=== PATIENT | female | born 1980 | race Hispanic/Latino ===

== ENCOUNTER 2017-05-26 12:57 | Emergency (ER) | payer OTHER, SELFPAY ==
[2017-05-26] MEDS ORDERED: Ondansetron ODT 8 MG TAB ONE ×2 (13:23→13:24)
[2017-05-26] MEDS ORDERED: Mag-Al 1200 mg/1200 mg/30 ML UDCUP ONE (13:37)
[2017-05-26] MEDS ORDERED: Lidocaine Viscous Sol 2% 15 ml UD Cup ONE (13:37)
[2017-05-26 13:51] LABS: #Eosinphils 0.1 thou/uL (0.0-0.7); #Lymphocytes 1.7 thou/uL (1.20-3.40); #Monocytes 0.5 thou/uL (0.11-0.59); #Neutrophils 4.3 thou/uL (1.40-6.50); %Basophils 0.5 % (0.0-1.0); %Eosinophils 1.7 % (0.0-10.0); %Lymphocytes 25.8 % (21.0-51.0); %Monocytes 7.9 % (0.0-10.0); Hematocrit 39.1 % (36.0-47.0); Mean Platelet Volume 7.3 fL (7.4-10.4); White Blood Cell (WBC) Count 6.8 thou/uL (4.8-10.8)
[2017-05-26 14:02] LABS: Bilirubin Negative (Negative); Blood, Urine Negative (Negative); Glucose, Urine (Dipstick) Negative (Negative); Ketone, Urine Negative (Negative); Nitrite Negative (Negative); Protein, Urine (Dipstick) Negative (Neg-Trace)
[2017-05-26 14:04] LABS: Hyaline Casts/LPF 4-6 HYALINE CAST LPF (0-3 Hyaline); WBC/HPF 21-50 HPF (0-3)
[2017-05-26 14:15] LABS: ALT (SGPT) 26 U/L (8-55); AST (SGOT) 19 U/L (5-34); Alkaline Phosphatase 139 U/L (40-150); Anion Gap 11 mmol/L (10-20); BUN (Urea Nitrogen) 17 mg/dL (7.0-18.7); Bilirubin, Total 1.3 mg/dL (0.2-1.2); Calc. Creatinine Clearance 0 mL/min (70-130); Calcium 9.2 mg/dL (7.8-10.44); Carbon Dioxide 26 mmol/L (22-29); Chloride 106 mmol/L (98-107); Estimated GFR-MDRD 87; Globulin 3.7 g/dL (2.4-3.5); Protein, Total 7.7 g/dL (6.0-8.3)
[2017-05-26 14:52] LABS: RBC/HPF 0-3 HPF (0-3)
[2017-05-26 14:53] LABS: Bacteria/HPF Rare-Few HPF (None Seen)
[2017-05-26 14:54] LABS: Yeast-All Forms None Seen HPF (None Seen)
== END 2017-05-26 15:34 | disposition home or self-care (01) ==
LOC: ERS 12:57
DX: N39.0 Urinary tract infection, site not specified (principal); R10.13 Epigastric pain
CPT/HCPCS: 36415; 80053; 81003; 81015; 84703; 85025; 99406

== ENCOUNTER 2018-07-04 06:40 | Emergency (ER) | payer BC, SELFPAY ==
[2018-07-04] MEDS ORDERED: Ketorolac Tromethamine 60 MG/2 ML VIAL ONE (07:21)
[2018-07-04] MEDS ORDERED: Dexamethasone 10 MG/ML VIAL ONE (07:21)
[2018-07-04] MEDS ORDERED: Bicillin LA 1.2 MILLION UNITS/2 ML SYRINGE ONE (07:21)
== END 2018-07-04 07:53 | disposition home or self-care (01) ==
LOC: ERS 06:40
DX: J02.0 Streptococcal pharyngitis (principal); F17.210 Nicotine dependence, cigarettes, uncomplicated
CPT/HCPCS: 96372; J0561; J1100; J1885

== ENCOUNTER 2018-07-08 11:14 | Emergency (ER) | payer BC | END 2018-07-08 12:20 | disposition home or self-care (01) | LOC: ERS 11:14 | DX: J02.9 Acute pharyngitis, unspecified (principal); F17.210 Nicotine dependence, cigarettes, uncomplicated | CPT/HCPCS: 99282 ==

== ENCOUNTER 2018-08-29 04:00 | Emergency (ER) | payer BC | END 2018-08-29 06:40 | disposition home or self-care (01) | LOC: ERS 04:00 | DX: J11.1 Influenza due to unidentified influenza virus with other respiratory manifestations (principal); F17.210 Nicotine dependence, cigarettes, uncomplicated | CPT/HCPCS: 87081; 87430; 87804; 99283 ==

== ENCOUNTER 2019-02-05 15:01 | Inpatient (IN) | payer BC, SELFPAY ==
[~2019-02-05 15:01] MED LIST: ISOVUE-370 76%-LOCM 1 ML ONE
[2019-02-05 16:51] LABS: #Lymphocytes 1.5 thou/uL (1.20-3.40); #Monocytes 1.3 thou/uL (0.11-0.59); %Basophils 0.1 % (0.0-1.0); %Eosinophils 0.1 % (0.0-10.0); %Lymphocytes 9.7 % (21.0-51.0); %Monocytes 7.9 % (0.0-10.0); %Neutrophils 82.1 % (42.0-75.0); Hemoglobin 13.2 g/dL (12.0-16.0); Mean Corpuscular HGB CONC 35.7 g/dL (32.0-36.0); Mean Corpuscular Hemoglobin 31.1 pg (27.0-31.0); Mean Platelet Volume 8.5 fL (7.4-10.4); Platelet Count 206 thou/uL (130-400); RBC Distribution Width 11.7 % (11.5-14.5); Red Blood Cell (RBC) Count 4.27 mill/uL (4.20-5.40); White Blood Cell (WBC) Count 15.8 thou/uL (4.8-10.8)
[2019-02-05] MEDS ORDERED: Ondansetron PF 4 MG/2 ML Vial ONE (17:04)
[2019-02-05 17:15] LABS: ALT (SGPT) 61 U/L (8-55); AST (SGOT) 25 U/L (5-34); Albumin 3.8 g/dL (3.5-5.0); Alkaline Phosphatase 168 U/L (40-150); Anion Gap 11 mmol/L (10-20); BUN (Urea Nitrogen) 14 mg/dL (7.0-18.7); Bilirubin, Total 2.6 mg/dL (0.2-1.2); Calc. Creatinine Clearance 0 mL/min (70-130); Calcium 9.1 mg/dL (7.8-10.44); Carbon Dioxide 28 mmol/L (22-29); Chloride 97 mmol/L (98-107); Estimated GFR-MDRD 87; Globulin 3.5 g/dL (2.4-3.5); Glucose 88 mg/dL (70-105); Lipase 14 U/L (8-78); Protein, Total 7.3 g/dL (6.0-8.3); Sodium 134 mmol/L (136-145)
[2019-02-05 17:20] LABS: Potassium 2.4 mmol/L (3.5-5.1)
[2019-02-05 17:30] LABS: Pregnancy Test - Urine (BHCG) Negative (Negative); Pregu Control Background? CLEAR/WHITE (CLR/WHITE); Pregu Control Bar Appear? YES (CONTROL BAR); Specific Gravity 1.037 (1.002-1.036)
[2019-02-05 17:36] LABS: Bilirubin 1+ (Negative); Blood, Urine Trace (Negative); Clarity Turbid (Clear); Glucose, Urine (Dipstick) Normal (Negative); Leukocyte 500 Leu/uL (Negative); Mucous/LPF Rare LPF (<2+); Nitrite Negative (Negative); Protein, Urine (Dipstick) 70 mg/dL (Neg-Trace); Transitional Epithelial 0-3 HPF (None Seen); Urobilinogen 3 mg/dL (Less than 2); WBC/HPF Greater than 50 HPF (0-3)
[2019-02-05] MEDS ORDERED: Potassium Chloride 20 MEQ TAB ONE (17:39)
[2019-02-05 17:44] LABS: Trichomonas/HPF 1+ HPF (None Seen)
[2019-02-05 17:45] LABS: Bacteria/HPF 1+ HPF (None Seen)
--- NOTE | 2019-02-05 17:50 | CT ---
CT abdomen and pelvis with IV contrast HISTORY: Abdomen pain. FINDINGS: Lung bases are clear. Gallbladder and appendix are surgically absent. Small cysts arise fro m the cortex of each kidney. Nonspecific lymph nodes throughout the retroperitoneum. No evidence of bowel obstruction. Urinary bladder is decompressed. Follicles arise from each ovary. IMPRESSION: No abnormalities to explain abdominal pain.
[2019-02-05] MEDS ORDERED: Sulfameth/Trimethoprim DS 800-160mg TAB ONE (18:17)
[2019-02-05] MEDS ORDERED: cefTRIAXone\\ROCEPHIN 2 GM VIAL ONE (18:17)
[2019-02-05] MEDS ORDERED: Sodium Chloride 0.9% 1,000 ML IV SCH (20:22)
[2019-02-05] MEDS: Morphine 2 MG/ML SYRINGE SLOW IVP PRN (22:29)
[2019-02-05] MEDS: D5 1/2 NS w/20 mEq KCL 1,000 ML IV SCH (22:37)
[2019-02-05 22:45] VITALS: BMI 32.2
[2019-02-05] MEDS ORDERED: Calcium Carbonate 500 MG ChewTAB PO PRN (23:15)
--- NOTE | 2019-02-06 03:17 | HP ---
PRIMARY CARE PHYSICIAN: Edward Ayers MD. CHIEF COMPLAINT: Fever, nausea, vomiting, abdominal pain. HISTORY OF PRESENT ILLNESS: This is a 38-year-old female patient who has been in her normal state of health until about 4 to 5 days ago when she developed nausea, vomiting, and diarrhea. She felt like it was just a viral infection that would resolve on its own. Then about 2 days ago, she developed a fever up to 101 with night sweats. Abdominal pain worsens all over, but worse on her left side. She states she continued to have the nausea, last time she threw up was 3 days ago. Her last diarrhea was about 3 days ago. She denies dysuria or frequency, but has noticed some blood in her urine over the past day. She has not had a past history of kidney stones or bladder infections. She does travel to [place] and has been eating at new places, but no other ill contacts. Had no one else in the family became sick either. She has had decreased appetite over the past several days. She has had some relief with presenting to the emergency department and getting some IV fluids, but continues to feel weak, but more complaining of abdominal pain. PAST MEDICAL HISTORY: None. MEDICATIONS: None. PAST SURGICAL HISTORY: Tubal ligation, appendectomy, cholecystectomy. ALLERGIES: TO CHERRIES. SOCIAL HISTORY: Positive smoking about 1 pack per week. Alcohol about 2 or 3 days a week. 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 She has 3 kids. FAMILY HISTORY: Noncontributory. REVIEW OF SYSTEMS: As per the history of present illness. GENERAL: She admits to increased weakness, increased fatigue, and generalized malaise. HEENT: No headache, visual or hearing changes. Denies upper respiratory symptoms. CARDIAC: Denies chest pain, shortness of breath, or palpitations. PULMONARY: Denies cough or hemoptysis. GI: As per the history of present illness. : Denies dysuria or hematuria prior to today. No recent bladder infections. NEUROLOGIC: No seizure or syncope. PHYSICAL EXAMINATION: VITAL SIGNS: In the ER, temperature 98.7, pulse is 74, respirations 12-15, blood pressure 128/67, and pulse ox 100% on room air. GENERAL: She is awake and alert. No acute distress. She does appear uncomfortable in bed. HEENT: Mucosa is dry. Lips are dry. NECK: Supple. No JVD, adenopathy, or bruits. HEART: Regular rate and rhythm. LUNGS: Clear. ABDOMEN: Positive bowel sounds. Soft. Diffuse tenderness throughout, worse on the left side and left upper quadrant. Minimal left CVA tenderness. EXTREMITIES: No clubbing, cyanosis, or edema. 2+ peripheral pulses bilaterally. LABORATORY DATA: White blood cell count 15,800, hemoglobin and hematocrit 13.2 and 37.1, platelets of 206. Sodium 134, potassium 2.4, chloride 97, CO2 of 28, BUN and creatinine 14 and 0.75 with a GFR of 87. Total bilirubin slightly elevated at 2.6, AST normal at 26, ALT 61, alkaline phosphatase elevated at 168, lipase normal at 14, albumin normal at 3.8. Urinalysis; positive protein, positive ketone, positive blood, positive bilirubin, positive leukocyte esterase, positive red blood cells, positive white blood cells, positive epithelial cells. test negative. Trichomonas positive. CT abdomen and pelvis reveals nonspecific lymph nodes in the retroperitoneum. No other abnormalities. Gallbladder and appendix are abnormal. No mention of the liver. ASSESSMENT AND PLAN: This is a 38-year-old female with about 1 week of symptoms of gastroenteritis and 2 to 3 days' symptoms of urinary tract infection, now with apparent pyelonephritis and dehydration. 1. Pyelonephritis. We will continue IV Rocephin. We will push IV fluids as well and once her nausea improves, we will be able to push oral fluids as well. 2. Dehydration. Again, we will start IV fluids. 3. Transaminitis with obstructive indices. We will get an ultrasound of the liver. May need GI evaluation if not improving. 4. Hypokalemia. We will continue to replete and IV fluids. 5. Leukocytosis. We will recheck in the morning. Job ID: [id number]
[2019-02-06] MEDS: Morphine 2 MG/ML SYRINGE SLOW IVP PRN ×3 (04:09→21:15)
[2019-02-06] MEDS: D5 1/2 NS w/20 mEq KCL 1,000 ML IV SCH ×4 (04:59→21:19)
[2019-02-06] MEDS: Sulfameth/Trimethoprim DS 800-160mg TAB PO SCH ×2 (05:00→17:24)
[2019-02-06 05:25] LABS: #Lymphocytes 1.5 thou/uL (1.20-3.40); #Neutrophils 10.1 thou/uL (1.40-6.50); %Basophils 0.1 % (0.0-1.0); %Eosinophils 0.3 % (0.0-10.0); %Lymphocytes 12.1 % (21.0-51.0); %Monocytes 8.1 % (0.0-10.0); %Neutrophils 79.4 % (42.0-75.0); Hemoglobin 11.4 g/dL (12.0-16.0); Mean Corpuscular Hemoglobin 30.6 pg (27.0-31.0); Mean Corpuscular Volume 87.5 fL (78.0-98.0); Platelet Count 192 thou/uL (130-400); RBC Distribution Width 11.6 % (11.5-14.5); Red Blood Cell (RBC) Count 3.71 mill/uL (4.20-5.40); White Blood Cell (WBC) Count 12.7 thou/uL (4.8-10.8)
[2019-02-06 05:51] LABS: ALT (SGPT) 47 U/L (8-55); AST (SGOT) 23 U/L (5-34); Albumin 3.4 g/dL (3.5-5.0); Alkaline Phosphatase 160 U/L (40-150); Anion Gap 11 mmol/L (10-20); BUN (Urea Nitrogen) 8 mg/dL (7.0-18.7); Bilirubin, Total 1.5 mg/dL (0.2-1.2); Calc. Creatinine Clearance 128 mL/min (70-130); Calcium 8.9 mg/dL (7.8-10.44); Carbon Dioxide 27 mmol/L (22-29); Chloride 102 mmol/L (98-107); Estimated GFR-MDRD Greater than 90; Glucose 106 mg/dL (70-105); Protein, Total 6.4 g/dL (6.0-8.3); Sodium 137 mmol/L (136-145)
[2019-02-06 05:57] LABS: Potassium 2.9 mmol/L (3.5-5.1)
[2019-02-06] MEDS ORDERED: Sulfameth/Trimethoprim DS 800-160mg TAB PO SCH (06:00)
--- NOTE | 2019-02-06 08:08 | PRG ---
DATE OF SERVICE: 02/06/2019 SUBJECTIVE: The patient is feeling somewhat better, but still with marked abdominal cramps and tenderness. Still with some left flank pain. OBJECTIVE: VITAL SIGNS: Temperature 99.4, pulse 76, respirations 18, pulse ox 97% on room air, and blood pressure 112/75. HEART: Regular rate and rhythm. LUNGS: Clear. ABDOMEN: Soft with bowel sounds present with diffuse tenderness. Appears to be worse in the right upper quadrant, but diffuse. BACK: With mild left CVA tenderness. EXTREMITIES: No edema. LABORATORY DATA: White count 12.7 down from 15.8, H and H are 11 and 32, and platelet is 192. Sodium 137, potassium 2.9, chloride 102, creatinine 0.72, BUN 8, and alkaline phosphatase decreased from 168 to 160. ASSESSMENT: 1. Abdominal pain unremarkable for diverticulitis on CAT scan. This morning, ultrasound is pending. Rule out gallstones. 2. Severe dehydration. 3. Hypokalemia. 4. Hyponatremia. PLAN: 1. Recheck CBC and comprehensive metabolic panel in the a.m. 2. Abdominal ultrasound today. 3. Continue with IV hydration. 4. Add potassium p.o. 5. We will re-evaluate in the a.m. Job ID: [id number]
--- NOTE | 2019-02-06 08:34 | ULT ---
ULTRASOUND ABDOMEN: Date: 02/06/19 HISTORY: Transaminitis. COMPARISON: CT examination prior day. FINDINGS: Real-time Guerrero scale and color evaluation of the abdomen performed. Visualized portions of the aorta, IVC, and pancreas are unremarkable. Hepatic echotexture is normal. Common bile duct measures 9 mm. Portal vein is patent with antegrade flow. No intrahepatic biliary di latation. Liver measures 17.2 cm in length. Right kidney measures 11.5 x 6.5 x 5.9 cm. Left kidney measures 10. 6 x 6.3 x 5.2 cm. No renal mass, hydronephrosis, or abnormal calcifications. Spleen measures 11.3 cm in length. IMPRESSION: 1. [place] effect of the extrahepatic biliary system. No acute inflammatory process within the abd omen or pelvis. 2. The renal hypodensities seen on the CT examination are not well defined on today's ultrasound. POS: OFF
[2019-02-06] MEDS: Potassium Chloride 20 MEQ TAB PO SCH ×2 (09:29→17:24)
[2019-02-06] MEDS: cefTRIAXone\\ROCEPHIN 1 GM in Sodium Chloride 0.9% 100 ML IVPB SCH (17:24)
[2019-02-06] MEDS ORDERED: Acetaminophen 500 MG TAB PO PRN (22:21)
[2019-02-06] MEDS: HYDROcodone/Acetaminophen 10/325 mg Tablet PO PRN (23:38)
[2019-02-07 05:28] LABS: #Eosinphils 0.2 thou/uL (0.0-0.7); #Lymphocytes 1.6 thou/uL (1.20-3.40); #Monocytes 0.8 thou/uL (0.11-0.59); #Neutrophils 6.9 thou/uL (1.40-6.50); %Basophils 0.2 % (0.0-1.0); %Eosinophils 2.1 % (0.0-10.0); %Lymphocytes 16.5 % (21.0-51.0); %Monocytes 8.8 % (0.0-10.0); %Neutrophils 72.5 % (42.0-75.0); Hemoglobin 11.3 g/dL (12.0-16.0); Mean Corpuscular HGB CONC 33.7 g/dL (32.0-36.0); Mean Corpuscular Hemoglobin 29.9 pg (27.0-31.0); Mean Corpuscular Volume 88.6 fL (78.0-98.0); Platelet Count 206 thou/uL (130-400); RBC Distribution Width 11.8 % (11.5-14.5); Red Blood Cell (RBC) Count 3.78 mill/uL (4.20-5.40); White Blood Cell (WBC) Count 9.6 thou/uL (4.8-10.8)
[2019-02-07 05:52] LABS: ALT (SGPT) 54 U/L (8-55); AST (SGOT) 38 U/L (5-34); Albumin 3.2 g/dL (3.5-5.0); Alkaline Phosphatase 156 U/L (40-150); Anion Gap 10 mmol/L (10-20); BUN (Urea Nitrogen) Less than 4 mg/dL (7.0-18.7); Bilirubin, Total 1.8 mg/dL (0.2-1.2); Calc. Creatinine Clearance 133 mL/min (70-130); Calcium 8.5 mg/dL (7.8-10.44); Carbon Dioxide 24 mmol/L (22-29); Chloride 103 mmol/L (98-107); Estimated GFR-MDRD Greater than 90; Glucose 88 mg/dL (70-105); Potassium 3.3 mmol/L (3.5-5.1); Protein, Total 6.2 g/dL (6.0-8.3); Sodium 134 mmol/L (136-145)
[2019-02-07] MEDS: Potassium Chloride 20 MEQ TAB PO SCH ×2 (08:14→17:55)
[2019-02-07] MEDS: Sulfameth/Trimethoprim DS 800-160mg TAB PO SCH ×2 (08:14→17:55)
[2019-02-07] MEDS: HYDROcodone/Acetaminophen 10/325 mg Tablet PO PRN ×3 (08:14→20:41)
[2019-02-07] MEDS: D5 1/2 NS w/20 mEq KCL 1,000 ML IV SCH ×3 (08:16→20:42)
--- NOTE | 2019-02-07 08:21 | PRG ---
DATE OF SERVICE: 02/07/2019 SUBJECTIVE: The patient still with abdominal cramps. She had a temperature last night of 100.2. Temperature this morning 99.6. OBJECTIVE: VITAL SIGNS: Temperature 99.6, pulse 76, respirations 18, and blood pressure 107/69. GENERAL: Mild distress from abdominal pain. HEART: Regular rate and rhythm. LUNGS: Clear. ABDOMEN: Soft. Mild diffuse tenderness. LABORATORY DATA: White count 9.6, H and H of 11 and 33. Sodium 134, potassium 3.3. ASSESSMENT: 1. Abdominal pain, most likely secondary to gastroenteritis. No diarrhea last night. Abdominal ultrasound and CAT scan unremarkable. 2. Severe dehydration, resolving. 3. Hypokalemia. 4. Hyponatremia, improving. PLAN: 1. Recheck CBC and comprehensive in the a.m. 2. Advance diet today. 3. Cultures are pending. 4. If the patient improves, possibly go home today or tomorrow. Job ID: [id number]
[2019-02-07] MEDS: cefTRIAXone\\ROCEPHIN 1 GM in Sodium Chloride 0.9% 100 ML IVPB SCH (17:55)
[2019-02-08] MEDS: HYDROcodone/Acetaminophen 10/325 mg Tablet PO PRN ×2 (02:27→10:43)
[2019-02-08] MEDS: D5 1/2 NS w/20 mEq KCL 1,000 ML IV SCH ×2 (03:00→11:05)
[2019-02-08 04:43] LABS: #Eosinphils 0.3 thou/uL (0.0-0.7); #Lymphocytes 1.5 thou/uL (1.20-3.40); #Neutrophils 7.8 thou/uL (1.40-6.50); %Eosinophils 2.7 % (0.0-10.0); %Lymphocytes 14.2 % (21.0-51.0); %Neutrophils 74.1 % (42.0-75.0); Hemoglobin 10.7 g/dL (12.0-16.0); Mean Corpuscular HGB CONC 33.3 g/dL (32.0-36.0); Mean Corpuscular Hemoglobin 29.4 pg (27.0-31.0); Mean Corpuscular Volume 88.4 fL (78.0-98.0); Mean Platelet Volume 7.7 fL (7.4-10.4); Platelet Count 270 thou/uL (130-400); RBC Distribution Width 11.8 % (11.5-14.5); Red Blood Cell (RBC) Count 3.64 mill/uL (4.20-5.40); White Blood Cell (WBC) Count 10.6 thou/uL (4.8-10.8)
[2019-02-08 05:03] LABS: ALT (SGPT) 55 U/L (8-55); AST (SGOT) 37 U/L (5-34); Alkaline Phosphatase 167 U/L (40-150); Anion Gap 10 mmol/L (10-20); BUN (Urea Nitrogen) Less than 4 mg/dL (7.0-18.7); Bilirubin, Total 1.2 mg/dL (0.2-1.2); Calc. Creatinine Clearance 146 mL/min (70-130); Calcium 8.6 mg/dL (7.8-10.44); Carbon Dioxide 23 mmol/L (22-29); Chloride 105 mmol/L (98-107); Estimated GFR-MDRD Greater than 90; Globulin 3.1 g/dL (2.4-3.5); Glucose 102 mg/dL (70-105); Potassium 3.5 mmol/L (3.5-5.1); Protein, Total 6.1 g/dL (6.0-8.3); Sodium 134 mmol/L (136-145)
[2019-02-08] MEDS: Sulfameth/Trimethoprim DS 800-160mg TAB PO SCH (06:10)
--- NOTE | 2019-02-08 08:19 | DIS ---
DATE OF ADMISSION: 02/05/2019 DATE OF DISCHARGE: 02/08/2019 DISCHARGE DIAGNOSES: 1. Viral gastroenteritis. 2. Mesenteric adenitis. 3. Dehydration. 4. Hypokalemia. 5. Hyponatremia, resolving. DISCHARGE MEDICATIONS: None. Maintain hydration. FOLLOWUP: Followup in [address] Edward Ayers. BRIEF HISTORY: This is a 38-year-old female, who is doing well until approximately 4 days prior, developed nausea, vomiting, diarrhea; but approximately 2 days prior, she developed fever to 101 with sweats. Her abdominal pain become much worse and she presented to the emergency room after having persistent nausea and vomiting. She eats out frequently at various restaurants and however has had no ill contacts recently. HOSPITAL COURSE: The patient was started on IV Rocephin as well as p.o. Bactrim. She was given IV hydration. She did spike a temperature up to 100.2. Over her 3-day hospital stay, her abdominal pain improved. Her diarrhea resolved. She is now tolerating a bland diet. She still does have abdominal soreness. However, her abdominal exam is benign. Her white count was 15.8 on admission, it is now 10.6 with an H and H of 10 and 32, and platelet 270. Sodium 134, potassium 3.5, BUN 4, and creatinine 0.63. UA showed dehydration on admission. Urine culture was negative. The patient plans to follow up in 1 week. Precautions have been given. Abdominal pelvic CT showed nonspecific retroperitoneal lymph nodes. Job ID: [id number]
[2019-02-08] MEDS ORDERED: Ondansetron PF 4 MG/2 ML Vial SLOW IVP PRN (10:12)
[2019-02-08] MEDS: Potassium Chloride 20 MEQ TAB PO SCH (10:43)
[2019-02-08 10:49] VITALS: BP 115/67; TEMP 98.5
== END 2019-02-08 14:32 | disposition home or self-care (01) | DRG 392 ==
LOC: ERS 15:01 → T4-A 20:07 → OBSVTOIN 20:07
PROVIDERS: ADMIT Family Medicine; ATTEND Family Medicine
DX: A08.4 Viral intestinal infection, unspecified (principal); N12 Tubulo-interstitial nephritis, not specified as acute or chronic; E87.1 Hypo-osmolality and hyponatremia; F17.210 Nicotine dependence, cigarettes, uncomplicated; E86.0 Dehydration; I88.0 Nonspecific mesenteric lymphadenitis; E87.6 Hypokalemia; Z90.49 Acquired absence of other specified parts of digestive tract; Z98.51 Tubal ligation status
CPT/HCPCS: 36415; 74177; 76700; 80053; 81003; 81015; 81025; 83690; 83735; 85025; 87040; 87086; 96361; 96365; 96375; J0696; J2270; J2405; J3490; Q9966

== ENCOUNTER 2019-11-26 09:20 | Emergency (ER) | payer SELFPAY ==
--- NOTE | 2019-11-26 09:38 | CT ---
CT BRAIN NONCONTRAST: DATE: 11/26/2019 HISTORY: 38-year-old female with left upper extremity hypesthesia (numbness). Dr. Ko verbally gave report for this stroke alert protocol CT by telephone with Dr. Stevens at 9:33 A M 11/26/2019 FINDINGS: There is no evidence of acute intra-axial or extra-axial hemorrhage. There is no midline shift or any other mass effect. There is no extra-axial fluid collection. There is no evidence of obstructive hydrocephalus. Calvarium is intact. There is an approximately 6 x 1 cm extra-axial fatty mass along t he interhemispheric fissure. IMPRESSION: 1. No acute intracranial findings. 2. Incidental finding of midline intracranial lipoma.
[2019-11-26 09:49] LABS: #Basophils 0.1 thou/uL (0.0-0.2); #Eosinphils 0.3 thou/uL (0.0-0.7); #Lymphocytes 2.1 thou/uL (1.20-3.40); #Monocytes 0.7 thou/uL (0.11-0.59); #Neutrophils 6.7 thou/uL (1.40-6.50); %Basophils 0.6 % (0.0-1.0); %Eosinophils 2.9 % (0.0-10.0); %Lymphocytes 21.5 % (21.0-51.0); %Monocytes 7.4 % (0.0-10.0); %Neutrophils 67.6 % (42.0-75.0); Hemoglobin 13.7 g/dL (12.0-16.0); Mean Corpuscular HGB CONC 33.4 g/dL (32.0-36.0); Mean Platelet Volume 8.7 fL (7.4-10.4); Platelet Count 251 thou/uL (130-400); RBC Distribution Width 12.5 % (11.5-14.5); Red Blood Cell (RBC) Count 4.56 mill/uL (4.20-5.40); White Blood Cell (WBC) Count 9.8 thou/uL (4.8-10.8)
[2019-11-26 09:53] LABS: PTT 29.3 SEC (22.9-36.1); Prothrombin Time 12.9 sec (12.0-14.7)
--- NOTE | 2019-11-26 09:57 | RAD ---
RADIOGRAPH CHEST 1 VIEW: DATE: 11/26/2019 HISTORY: 38-year-old female with cough FINDINGS: The visualized lung daley are clear. The cardiomediastinal silhouette and hilar shadows are normal. The lateral costophrenic angles are sharp. The osseous structures appear normal. There is no pneumothorax. IMPRESSION: Negative.
[2019-11-26 10:02] LABS: ALT (SGPT) 39 U/L (8-55); AST (SGOT) 34 U/L (5-34); Albumin 4.5 g/dL (3.5-5.0); Alkaline Phosphatase 143 U/L (40-110); Anion Gap 14 mmol/L (10-20); BUN (Urea Nitrogen) 10 mg/dL (7.0-18.7); Bilirubin, Total 0.7 mg/dL (0.2-1.2); Calc. Creatinine Clearance 0 mL/min (70-130); Calcium 8.5 mg/dL (7.8-10.44); Carbon Dioxide 24 mmol/L (22-29); Chloride 107 mmol/L (98-107); Estimated GFR-MDRD 90; Globulin 3.1 g/dL (2.4-3.5); Glucose 91 mg/dL (70-105); Potassium 3.5 mmol/L (3.5-5.1); Protein, Total 7.6 g/dL (6.0-8.3); Sodium 141 mmol/L (136-145)
[2019-11-26 10:48] LABS: Bilirubin Negative (Negative); Blood, Urine Negative (Negative); Clarity Clear (Clear); Glucose, Urine (Dipstick) Normal (Negative); Leukocyte 25 Leu/uL (Negative); Nitrite Negative (Negative); Protein, Urine (Dipstick) 20 mg/dL (Neg-Trace); RBC/HPF 0-3 HPF (0-3); Squamous Epithelial 0-3 HPF (0-3); Urobilinogen Normal mg/dL (Less than 2)
[2019-11-26 10:49] LABS: Bacteria/HPF 1+ HPF (None Seen); Pregnancy Test - Urine (BHCG) Negative (Negative); Pregu Control Background? CLEAR/WHITE (CLR/WHITE); Pregu Control Bar Appear? YES (CONTROL BAR); Specific Gravity 1.021 (1.002-1.036)
[2019-11-26] MEDS ORDERED: Dexamethasone 10 MG/ML VIAL ONE (11:04)
[2019-11-26] MEDS ORDERED: Ketorolac Tromethamine 30 MG/ML VIAL ONE (11:04)
[2019-11-26] MEDS ORDERED: HYDROcodone/Acetaminophen 5/325 mg Tablet ONE (11:13)
--- NOTE | 2019-11-29 15:34 | EKG ---
Test Reason : Blood Pressure : / mmHG Vent. Rate : 077 BPM Atrial Rate : 077 BPM P-R Int : 124 ms QRS Dur : 068 ms QT Int : 392 ms P-R-T Axes : 032 025 025 degrees QTc Int : 443 ms Normal sinus rhythm Normal ECG Confirmed by JASWINDER DA SILVA ([id number]), sound editor VIVIAN MILES ([id number] on 11/29/2019 3:33:52 PM Referred By: Confirmed By:JASWINDER DA SILVA
== END 2019-11-26 11:26 | disposition home or self-care (01) ==
LOC: ERS 09:20
DX: M62.838 Other muscle spasm (principal); R20.2 Paresthesia of skin; R07.89 Other chest pain; F17.210 Nicotine dependence, cigarettes, uncomplicated
CPT/HCPCS: 36416; 70450; 71045; 80053; 81003; 81015; 81025; 82550; 84484; 85025; 85610; 85730; 93005; 94760; 96372; J1100; J1885

== ENCOUNTER 2019-12-12 11:42 | Emergency (ER) | payer OTHER, SELFPAY ==
[2019-12-12 22:23] LABS: SARS-CoV-2 MS2 Positive; SARS-CoV-2 N Gene Positive; SARS-CoV-2 S Gene Positive; SARS-CoV-2 orf1ab Positive
== END 2019-12-12 13:21 | disposition home or self-care (01) ==
LOC: ERS 11:42
DX: U07.1 COVID-19 (principal); F17.210 Nicotine dependence, cigarettes, uncomplicated
CPT/HCPCS: 87635; 99283; U0003

== ENCOUNTER 2020-01-09 12:32 | Emergency (ER) | payer OTHER, SELFPAY ==
[2020-01-10 12:18] LABS: SARS-CoV-2 MS2 Positive; SARS-CoV-2 N Gene Positive; SARS-CoV-2 S Gene Positive; SARS-CoV-2 orf1ab Positive
== END 2020-01-09 13:08 | disposition home or self-care (01) ==
LOC: ERS 12:32
DX: U07.1 COVID-19 (principal); F17.210 Nicotine dependence, cigarettes, uncomplicated
CPT/HCPCS: 87635; 99283; U0003

== ENCOUNTER 2020-12-04 10:19 | Emergency (ER) | payer OTHER, SELFPAY ==
[2020-12-04] MEDS ORDERED: Ketorolac Tromethamine 30 MG/ML VIAL ONE (11:23)
[2020-12-04] MEDS ORDERED: diphenhydrAMINE 50 MG/ML VIAL ONE (11:23)
[2020-12-04] MEDS ORDERED: Metoclopramide HCl 10 MG TAB ONE (11:23)
[2020-12-04] MEDS ORDERED: Metoclopramide HCl 10 MG/2 ML VIAL ONE (11:24)
== END 2020-12-04 13:33 | disposition home or self-care (01) ==
LOC: ERS 10:19
DX: R51.9 Headache, unspecified (principal); M54.5 Low back pain; F17.210 Nicotine dependence, cigarettes, uncomplicated
CPT/HCPCS: 70450; 96365; 96375; J1200; J1885; J2765

== ENCOUNTER 2021-06-07 22:29 | Emergency (ER) | payer SELFPAY | END 2021-06-07 23:40 | disposition home or self-care (01) | LOC: ERS 22:29 | DX: H60.93 Unspecified otitis externa, bilateral (principal); J32.1 Chronic frontal sinusitis; H61.23 Impacted cerumen, bilateral; R19.7 Diarrhea, unspecified; F17.210 Nicotine dependence, cigarettes, uncomplicated | CPT/HCPCS: 99283 ==

== ENCOUNTER 2021-11-05 14:40 | Emergency (ER) | payer SELFPAY ==
[2021-11-05 15:20] LABS: Pregnancy Test - Urine (BHCG) Negative (Negative)
[2021-11-05 15:21] LABS: Pregu Control Background? CLEAR/WHITE (CLR/WHITE); Pregu Control Bar Appear? YES (CONTROL BAR); Specific Gravity 1.022 (1.002-1.036)
[2021-11-05 15:40] LABS: #Eosinphils 0.2 thou/uL (0.0-0.7); #Lymphocytes 0.9 thou/uL (1.20-3.40); #Monocytes 0.3 thou/uL (0.11-0.59); %Basophils 0.3 % (0.0-1.0); %Eosinophils 2.9 % (0.0-10.0); %Lymphocytes 11.8 % (21.0-51.0); %Monocytes 3.6 % (0.0-10.0); %Neutrophils 81.3 % (42.0-75.0); Hemoglobin 13.2 g/dL (12.0-16.0); Mean Corpuscular HGB CONC 33.9 g/dL (32.0-36.0); Mean Corpuscular Hemoglobin 30.3 pg (27.0-31.0); Mean Corpuscular Volume 89.4 fL (78.0-98.0); Mean Platelet Volume 7.9 fL (7.4-10.4); Platelet Count 211 thou/uL (130-400); RBC Distribution Width 12.4 % (11.5-14.5); Red Blood Cell (RBC) Count 4.34 mill/uL (4.20-5.40); White Blood Cell (WBC) Count 7.4 thou/uL (4.8-10.8)
[2021-11-05 16:00] LABS: ALT (SGPT) 28 U/L (8-55); AST (SGOT) 27 U/L (5-34); Albumin 3.8 g/dL (3.5-5.0); Alkaline Phosphatase 118 U/L (40-110); Anion Gap 10 mmol/L (10-20); BUN (Urea Nitrogen) 16 mg/dL (7.0-18.7); Bilirubin, Total 1.4 mg/dL (0.2-1.2); Calc. Creatinine Clearance 0 mL/min (70-130); Calcium 8.5 mg/dL (7.8-10.44); Carbon Dioxide 25 mmol/L (22-29); Chloride 107 mmol/L (98-107); Globulin 3.3 g/dL (2.4-3.5); Glucose 83 mg/dL (70-105); Lipase 36 U/L (8-78); Potassium 3.5 mmol/L (3.5-5.1); Protein, Total 7.1 g/dL (6.0-8.3); Sodium 138 mmol/L (136-145)
[2021-11-05] MEDS ORDERED: Dicyclomine 20 MG/2 ML VIAL ONE (16:36)
[2021-11-05] MEDS ORDERED: Mag-Al 1200 mg/1200 mg/30 ML UDCUP ONE (16:36)
[2021-11-05] MEDS ORDERED: Ketorolac Tromethamine 30 MG/ML VIAL ONE (16:36)
[2021-11-05] MEDS ORDERED: Lidocaine Viscous Sol 2% 15 ml UD Cup ONE (16:36)
[2021-11-05 17:11] LABS: Bacteria/HPF 2+ HPF (None Seen); Bilirubin Negative (Negative); Blood, Urine 2+ (Negative); Clarity Turbid (Clear); Glucose, Urine (Dipstick) Normal (Negative); Ketone, Urine Negative (Negative); Leukocyte 500 Leu/uL (Negative); Nitrite Negative (Negative); Protein, Urine (Dipstick) 10 mg/dL (Neg-Trace); Specific Gravity, Urine 1.023 (1.002-1.036); Urobilinogen Normal mg/dL (Less than 2); WBC/HPF Greater than 50 HPF (0-3); pH, Urine 5.5 (5.0-9.0)
== END 2021-11-05 17:03 | disposition home or self-care (01) ==
LOC: ERS 14:40
DX: R07.89 Other chest pain (principal); R10.13 Epigastric pain; R10.11 Right upper quadrant pain; I10 Essential (primary) hypertension; F17.210 Nicotine dependence, cigarettes, uncomplicated
CPT/HCPCS: 36415; 71045; 80053; 81003; 81015; 81025; 83690; 84484; 85025; 93005; 96372; J0500; J1885

== ENCOUNTER 2022-02-02 13:12 | Emergency (ER) | payer SELFPAY ==
[2022-02-02 14:18] LABS: #Eosinphils 0.9 thou/uL (0.0-0.7); #Lymphocytes 2.1 thou/uL (1.20-3.40); #Monocytes 0.6 thou/uL (0.11-0.59); #Neutrophils 4.2 thou/uL (1.40-6.50); %Basophils 0.4 % (0.0-1.0); %Eosinophils 12.2 % (0.0-10.0); %Lymphocytes 26.8 % (21.0-51.0); %Monocytes 7.4 % (0.0-10.0); %Neutrophils 53.3 % (42.0-75.0); Hemoglobin 13.2 g/dL (12.0-16.0); Mean Corpuscular HGB CONC 33.6 g/dL (32.0-36.0); Mean Corpuscular Hemoglobin 30.3 pg (27.0-31.0); Mean Platelet Volume 8.5 fL (7.4-10.4); Platelet Count 218 thou/uL (130-400); RBC Distribution Width 12.6 % (11.5-14.5); Red Blood Cell (RBC) Count 4.37 mill/uL (4.20-5.40); White Blood Cell (WBC) Count 7.8 thou/uL (4.8-10.8)
[2022-02-02 14:37] LABS: ALT (SGPT) 32 U/L (8-55); AST (SGOT) 29 U/L (5-34); Alkaline Phosphatase 170 U/L (40-110); Anion Gap 12 mmol/L (10-20); BUN (Urea Nitrogen) 13 mg/dL (7.0-18.7); Bilirubin, Total 1.4 mg/dL (0.2-1.2); Calc. Creatinine Clearance 0 mL/min (70-130); Carbon Dioxide 24 mmol/L (22-29); Chloride 105 mmol/L (98-107); Estimated GFR 93; Globulin 3.3 g/dL (2.4-3.5); Glucose 90 mg/dL (70-105); Lipase 48 U/L (8-78); Potassium 3.7 mmol/L (3.5-5.1); Protein, Total 7.3 g/dL (6.0-8.3); Sodium 137 mmol/L (136-145)
[2022-02-02] MEDS ORDERED: Ondansetron ODT 4 MG TAB ONE (16:36)
[2022-02-02 17:00] LABS: Bacteria/HPF 2+ HPF (None Seen); Bilirubin Negative (Negative); Blood, Urine Negative (Negative); Clarity Turbid (Clear); Glucose, Urine (Dipstick) Normal (Negative); Ketone, Urine Negative (Negative); Leukocyte 250 Leu/uL (Negative); Nitrite 2+ (Negative); Pregnancy Test - Urine (BHCG) Negative (Negative); Pregu Control Background? CLEAR/WHITE (CLR/WHITE); Pregu Control Bar Appear? YES (CONTROL BAR); Protein, Urine (Dipstick) 20 mg/dL (Neg-Trace); RBC/HPF 0-3 HPF (0-3); Specific Gravity 1.022 (1.002-1.036); Specific Gravity, Urine 1.022 (1.002-1.036); Urobilinogen Normal mg/dL (Less than 2); WBC/HPF Greater than 50 HPF (0-3); pH, Urine 5.5 (5.0-9.0)
== END 2022-02-02 17:48 | disposition home or self-care (01) ==
LOC: ERS 13:12
DX: K29.70 Gastritis, unspecified, without bleeding (principal); N39.0 Urinary tract infection, site not specified; I10 Essential (primary) hypertension; F17.290 Nicotine dependence, other tobacco product, uncomplicated; Z79.899 Other long term (current) drug therapy
CPT/HCPCS: 36415; 80053; 81003; 81015; 81025; 83690; 85025; 99284; Q0162

== ENCOUNTER 2023-01-13 02:48 | Emergency (ER) | payer SELFPAY ==
[2023-01-13] MEDS ORDERED: Ondansetron PF 4 MG/2 ML Vial ONE (03:59)
[2023-01-13] MEDS ORDERED: Morphine 4 MG/ML VIAL ONE (03:59)
[2023-01-13] MEDS ORDERED: Ketorolac Tromethamine 30 MG/ML VIAL ONE (03:59)
[2023-01-13 04:34] LABS: #Eosinphils 0.2 thou/uL (0.0-0.7); #Monocytes 0.4 thou/uL (0.11-0.59); #Neutrophils 1.5 thou/uL (1.40-6.50); %Basophils 0.3 % (0.0-1.0); %Lymphocytes 41.2 % (21.0-51.0); %Neutrophils 42.2 % (42.0-75.0); Hemoglobin 12.4 g/dL (12.0-16.0); Mean Corpuscular HGB CONC 32.6 g/dL (32.0-36.0); Mean Corpuscular Hemoglobin 28.2 pg (27.0-31.0); Mean Corpuscular Volume 86.4 fl (78.0-98.0); Mean Platelet Volume 11.2 fL (7.4-10.4); Platelet Count 163 10x3/uL (130-400); RBC Distribution Width 13.1 % (11.5-14.5); White Blood Cell (WBC) Count 3.6 10x3/uL (4.8-10.8)
[2023-01-13 05:00] LABS: ALT (SGPT) 53 U/L (8-55); AST (SGOT) 37 U/L (5-34); Albumin 3.8 g/dL (3.5-5.0); Alkaline Phosphatase 140 U/L (40-110); Anion Gap 11 mmol/L (10-20); BUN (Urea Nitrogen) 11 mg/dL (7.0-18.7); Bilirubin, Total 0.4 mg/dL (0.2-1.2); Calc. Creatinine Clearance 0 mL/min (70-130); Calcium 8.6 mg/dL (7.8-10.44); Carbon Dioxide 27 mmol/L (22-29); Chloride 106 mmol/L (98-107); Estimated GFR 98; Globulin 3.2 g/dL (2.4-3.5); Glucose 101 mg/dL (70-105); Potassium 3.6 mmol/L (3.5-5.1); Sodium 140 mmol/L (136-145)
[2023-01-13 05:21] LABS: Bacteria/HPF None Seen HPF (None Seen); Bilirubin Negative (Negative); Blood, Urine 2+ (Negative); CAUTI Indications for Culture Fever or rigors; Clarity Clear (Clear); Glucose, Urine (Dipstick) Normal (Negative); Ketone, Urine Negative (Negative); Leukocyte 25 Leu/uL (Negative); Nitrite Negative (Negative); Protein, Urine (Dipstick) 50 mg/dL (Neg-Trace); Specific Gravity, Urine 1.024 (1.002-1.036); Squamous Epithelial 0-3 HPF (0-3); Urobilinogen Normal mg/dL (Less than 2); pH, Urine 5.5 (5.0-9.0)
[2023-01-13 05:23] LABS: Urine Culture Reflex No No
[2023-01-13] MEDS ORDERED: Dexamethasone 10 MG/ML VIAL ONE (05:23)
[2023-01-13 06:00] LABS: SARS-CoV-2 NAA Rapid Test Not Detected (NotDetected)
[2023-01-13] MEDS ORDERED: Iopamidol 370 76% 100 ML VIAL ONE (11:43)
== END 2023-01-13 07:53 | disposition home or self-care (01) ==
LOC: ERS 02:48
DX: J10.1 Influenza due to other identified influenza virus with other respiratory manifestations (principal); I10 Essential (primary) hypertension; F17.210 Nicotine dependence, cigarettes, uncomplicated; Z20.822 Contact with and (suspected) exposure to COVID-19
CPT/HCPCS: 36415; 70491; 80053; 81001; 85025; 87081; 87430; 93005; 96361; 96374; 96375; J1100; J1885; J2270; J2405; Q9967

== ENCOUNTER 2023-04-20 16:46 | Emergency (ER) | payer SELFPAY ==
[~2023-04-20 16:46] MED LIST changes: -ISOVUE-370 76%-LOCM 1 ML ONE; +Iopamidol-370 76% 500 ML MDV (1 ML CHARGE) ONE
[2023-04-20 17:15] LABS: #Eosinphils 0.2 thou/uL (0.0-0.7); #Monocytes 0.5 thou/uL (0.11-0.59); #Neutrophils 6.2 thou/uL (1.40-6.50); %Basophils 0.4 % (0.0-1.0); %Eosinophils 2.3 % (0.0-10.0); %Lymphocytes 19.1 % (21.0-51.0); %Monocytes 5.7 % (0.0-10.0); %Neutrophils 72.1 % (42.0-75.0); Hematocrit 36.9 % (36.0-47.0); Hemoglobin 12.2 g/dL (12.0-16.0); Mean Corpuscular HGB CONC 33.1 g/dL (32.0-36.0); Mean Corpuscular Hemoglobin 28.7 pg (27.0-31.0); Mean Corpuscular Volume 86.8 fl (78.0-98.0); Platelet Count 249 10x3/uL (130-400); RBC Distribution Width 13.7 % (11.5-14.5); Red Blood Cell (RBC) Count 4.25 mill/uL (4.20-5.40); White Blood Cell (WBC) Count 8.6 10x3/uL (4.8-10.8)
[2023-04-20 17:42] LABS: ALT (SGPT) 37 U/L (8-55); AST (SGOT) 20 U/L (5-34); Albumin 4.2 g/dL (3.5-5.0); Alkaline Phosphatase 144 U/L (40-110); Anion Gap 11 mmol/L (10-20); BUN (Urea Nitrogen) 13 mg/dL (7.0-18.7); Bilirubin, Total 0.7 mg/dL (0.2-1.2); Calc. Creatinine Clearance 0 mL/min (70-130); Calcium 9.4 mg/dL (7.8-10.44); Carbon Dioxide 24 mmol/L (22-29); Chloride 107 mmol/L (98-107); Estimated GFR 97; Globulin 3.1 g/dL (2.4-3.5); Glucose 97 mg/dL (70-105); Lipase 86 U/L (8-78); Potassium 3.8 mmol/L (3.5-5.1); Protein, Total 7.3 g/dL (6.0-8.3); Sodium 138 mmol/L (136-145)
[2023-04-20] MEDS ORDERED: Morphine 4 MG/ML VIAL ONE (18:15)
[2023-04-20] MEDS ORDERED: Ondansetron PF 4 MG/2 ML Vial ONE (18:15)
[2023-04-20 18:16] LABS: BHCG - Serum Negative (NEGATIVE); Pregs Control Background? CLEAR/WHITE (CLR/WHITE); Pregs Control Bar Appear? YES (CONTROL BAR)
[2023-04-20 19:14] LABS: Bilirubin Negative (Negative); Blood, Urine 1+ (Negative); CAUTI Indications for Culture Pelvic or flank pain; Clarity Clear (Clear); Glucose, Urine (Dipstick) Normal (Negative); Ketone, Urine Negative (Negative); Leukocyte 500 Leu/uL (Negative); Nitrite Negative (Negative); Protein, Urine (Dipstick) Negative (Neg-Trace); Squamous Epithelial 0-3 HPF (0-3); Urobilinogen Normal mg/dL (Less than 2); WBC/HPF Greater than 50 HPF (0-3); pH, Urine 5.5 (5.0-9.0)
[2023-04-20 19:17] LABS: Bacteria/HPF 1+ HPF (None Seen)
[2023-04-20 19:18] LABS: Urine Culture Reflex Yes Yes
[2023-04-20] MEDS ORDERED: HYDROcodone/Acetaminophen 10/325 mg Tablet ONE (22:15)
[2023-04-20 23:00] LABS: Chlamydia by PCR, Vaginal Swab Not Detected (NotDetected); GC by PCR, Vaginal Swab Not Detected (NotDetected)
== END 2023-04-20 22:21 | disposition home or self-care (01) ==
LOC: ERS 16:46
DX: N34.0 Urethral abscess (principal); I10 Essential (primary) hypertension; F17.290 Nicotine dependence, other tobacco product, uncomplicated; Z79.899 Other long term (current) drug therapy
CPT/HCPCS: 36415; 74177; 80053; 81001; 83690; 84703; 85025; 87086; 87480; 87491; 87510; 87591; 87660; 96374; 96375; J2270; J2405; Q9967

== ENCOUNTER 2023-04-22 18:55 | Emergency (ER) | payer SELFPAY ==
[2023-04-22 21:07] LABS: Bacteria/HPF 4+ HPF (None Seen); Bilirubin Negative (Negative); Blood, Urine 1+ (Negative); CAUTI Indications for Culture Dysuria,urgency,freq; Clarity Extra Turbid (Clear); Glucose, Urine (Dipstick) Normal (Negative); Ketone, Urine Negative (Negative); Leukocyte 500 Leu/uL (Negative); Nitrite Negative (Negative); Protein, Urine (Dipstick) 20 mg/dL (Neg-Trace); Specific Gravity, Urine 1.019 (1.002-1.036); Urobilinogen Normal mg/dL (Less than 2); WBC/HPF 21-50 HPF (0-3)
[2023-04-22 21:11] LABS: Urine Culture Reflex Yes Yes
[2023-04-22] MEDS ORDERED: Morphine 4 MG/ML VIAL ONE ×2 (22:05→23:17)
[2023-04-22] MEDS ORDERED: Ketorolac Tromethamine 30 MG/ML VIAL ONE (23:17)
[2023-04-22 23:34] LABS: #Eosinphils 0.1 thou/uL (0.0-0.7); #Monocytes 0.2 thou/uL (0.11-0.59); #Neutrophils 4.6 thou/uL (1.40-6.50); %Basophils 0.3 % (0.0-1.0); %Eosinophils 2.1 % (0.0-10.0); %Lymphocytes 13.5 % (21.0-51.0); %Monocytes 4.2 % (0.0-10.0); %Neutrophils 79.6 % (42.0-75.0); Hematocrit 38.7 % (36.0-47.0); Hemoglobin 12.8 g/dL (12.0-16.0); Mean Corpuscular HGB CONC 33.1 g/dL (32.0-36.0); Mean Corpuscular Hemoglobin 28.3 pg (27.0-31.0); Mean Corpuscular Volume 85.6 fl (78.0-98.0); Mean Platelet Volume 10.8 fL (7.4-10.4); Platelet Count 264 10x3/uL (130-400); RBC Distribution Width 13.4 % (11.5-14.5); Red Blood Cell (RBC) Count 4.52 mill/uL (4.20-5.40); White Blood Cell (WBC) Count 5.8 10x3/uL (4.8-10.8)
[2023-04-22 23:41] LABS: BHCG - Serum Negative (NEGATIVE); Pregs Control Background? CLEAR/WHITE (CLR/WHITE); Pregs Control Bar Appear? YES (CONTROL BAR)
[2023-04-23 00:01] LABS: ALT (SGPT) 308 U/L (8-55); AST (SGOT) 355 U/L (5-34); Albumin 4.5 g/dL (3.5-5.0); Alkaline Phosphatase 202 U/L (40-110); Anion Gap 11 mmol/L (10-20); BUN (Urea Nitrogen) 10 mg/dL (7.0-18.7); Bilirubin, Total 1.1 mg/dL (0.2-1.2); Calc. Creatinine Clearance 0 mL/min (70-130); Calcium 9.4 mg/dL (7.8-10.44); Carbon Dioxide 24 mmol/L (22-29); Chloride 105 mmol/L (98-107); Estimated GFR 100; Globulin 3.4 g/dL (2.4-3.5); Glucose 102 mg/dL (70-105); Protein, Total 7.9 g/dL (6.0-8.3); Sodium 136 mmol/L (136-145)
== END 2023-04-23 00:46 | disposition home or self-care (01) ==
LOC: ERS 18:55
DX: R10.2 Pelvic and perineal pain (principal); I10 Essential (primary) hypertension; F17.290 Nicotine dependence, other tobacco product, uncomplicated
CPT/HCPCS: 72193; 80053; 81001; 83605; 84703; 85025; 87086; 96372; 96374; 96375; J1885; J2270; Q9967

== ENCOUNTER 2023-09-09 15:40 | Emergency (ER) | payer SELFPAY ==
[2023-09-09 17:36] LABS: Influenza A by NAA Not Detected (NotDetected); Influenza B by NAA Not Detected (NotDetected); SARS-CoV-2 NAA Rapid Test DETECTED (NotDetected)
== END 2023-09-09 18:11 | disposition home or self-care (01) ==
LOC: ERS 15:40
DX: U07.1 COVID-19 (principal); I10 Essential (primary) hypertension; R10.9 Unspecified abdominal pain; F17.290 Nicotine dependence, other tobacco product, uncomplicated; Z55.6 Problems related to health literacy
CPT/HCPCS: 99284